=== PATIENT | male | born 1985 | race Caucasian/White ===

== ENCOUNTER 2019-04-20 08:37 | Observation (INO) ==
[2019-04-20] MEDS ORDERED: 0.9 % Sodium Chloride 1,000 ML IVC ONE ×2 (08:57→10:59)
[2019-04-20] MEDS ORDERED: Ondansetron 4 MG/2 ML VIAL IVP ONE ×2 (08:57→13:23)
[2019-04-20 09:25] LABS: Basophils % 0.3 %; Eosinophils # 0.1 K/mcL (0.0-0.6); Eosinophils % 0.6 %; Hematocrit 43.3 % (37.5-50.1); Hemoglobin 14.9 g/dL (12.9-16.9); Immature Granulocytes % 0.4 % (0-4); Lymphocytes # 2.2 K/mcL (0.6-4.6); Lymphocytes % 21.6 %; Mean Corpuscular HGB Conc 34.4 g/dL (31.6-35.5); Mean Corpuscular Hemoglobin 31.5 pg (28.0-33.3); Mean Corpuscular Volume 91.5 fL (83.0-100.0); Mean Platelet Volume 10.4 fL (9.4-12.4); Monocytes # 0.6 K/mcL (0.0-1.3); Neutrophils # 7.2 K/mcL (1.6-8.9); Platelet Count 207 K/mcL (140-400); Red Blood Count 4.73 M/mcL (4.19-5.50); Red Cell Distribution Width 12.5 % (11.5-14.5); Segmented Neutrophils % 71.1 %; White Blood Count 10.1 K/mcL (4.3-11.1)
--- NOTE | 2019-04-20 09:28 | Emergency Department Note ---
Disposition Clinical Impression: Colitis, Intractable abdominal pain Intractable nausea and vomiting Qualifiers: Vomiting type: unspecified Qualified Code(s): R11.2 - Nausea with vomiting, unspecified Disposition: Admitted As Inpatient Condition: Good Referrals: NONE,PCP [Primary Care Provider] - Forms: ED Satisfaction Letter, Work/School Release Time of Disposition: 13:43 Abdominal Pain HPI - General Chief Complaint: ED Abdominal Pain Stated Complaint: abdominal pain Time Seen by Provider: 04/20/19 08:39 Source: patient, EMS Mode of arrival: ambulatory Limitations: no limitations Nursing Notes Reviewed: Yes Vital Signs Reviewed: Yes - History of Present Illness HPI Narrative: Alert and oriented nontoxic-appearing 34-year-old male with a history of diverticular disease presents for evaluation for concerns of a flare of diverticulitis. He complains of 8-9 days worth of progressively worsening diffuse lower abdominal/left lower quadrant pain. He complains of nausea and several episodes of vomiting. He states he is unable to keep food or beverage down. He states that he had not had a bowel movement for several days up until yesterday evening. He states that he had a large bowel movement which consisted of flecks of bright red blood. He describes some blood-streaked emesis as well earlier this morning. He denies any fever or chills. He denies any urinary symptoms. He states that he had been referred to gastroenterology however he was lost to follow-up. Pt Subjective Complaint: abdominal pain Onset (ago): day(s) Consistency: Worsening Location: diffuse, LLQ Pain Severity: severe Pain Scale: 10 Quality: aching Radiation: none Migration to: no migration Improves with: nothing Worsens with: eating Associated symptoms: Reports: nausea, vomiting. Denies: diarrhea, fever, chills, constipation, dysuria Treatments prior to arrival: none - Related Data Home Medications Medication Instructions Recorded Confirmed No Known Home Drugs 04/20/19 04/20/19 Allergies Allergy/AdvReac Type Severity Reaction Status Date / Time No Known Allergies Allergy Verified 09/20/17 19:35 All systems ED: reviewed and negative except as stated. Review of Systems: As Per HPI Constitutional: Denies: fever, chills, weakness, weight change Eyes: Denies: eye pain, eye discharge, vision change ENT ED: Denies: ear pain, throat pain, dental pain, hearing loss, epistaxis, congestion, dysphagia Cardiovascular: Denies: chest pain, palpitations, dyspnea on exertion, edema, syncope Respiratory: Denies: cough, dyspnea, wheezes, hemoptysis, stridor Gastrointestinal: Reports: as per HPI, abdominal pain, nausea, vomiting. Denies: diarrhea, constipation, hematemesis, melena, hematochezia Genitourinary: Denies: urgency, dysuria, frequency, hematuria Musculoskeletal: Denies: back pain, neck pain, arthralgia, myalgia Integumentary: Denies: rash, abrasion, lesions Neurological: Denies: headache, weakness, numbness, paresthesias, confusion, abnormal gait, vertigo Psychiatric: Denies: anxiety, depression, suicidal thoughts, homicidal thoughts, auditory hallucinations, visual hallucinations Endocrine: Denies: fatigue Hematological/Lymphatic: Denies: easy bleeding, easy bruising Allergic/Immunologic: Denies: facial swelling, urticaria Abdominal Pain PMH - Past Medical History Medical history: Reports: GERD Male Surgical History: Reports: orthopedic, other, other Psychiatric history: Reports: anxiety, bipolar, depression - Social History Smoking status: Current every day smoker Alcohol use: Reports: occasionally Drug use: Reports: marijuana Physical Exam - General General appearance: alert - Head Head exam: atraumatic, normocephalic, normal inspection - Eye Eye exam: Present: normal appearance, PERRL, EOMI. Absent: conjunctival injection - ENT ENT exam: mucous membranes moist - Neck Neck exam: Present: normal inspection, full ROM - Chest Chest inspection: Present: normal inspection, symmetric chest wall rise - Respiratory Respiratory exam: Present: normal lung sounds bilaterally. Absent: respiratory distress, wheezes, stridor, accessory muscle use, prolonged expiratory phase - Cardiovascular Cardiovascular exam: Present: regular rate, normal rhythm, normal heart sounds - Abdominal Exam Abdominal exam: Present: soft, tenderness, normal bowel sounds. Absent: distention, guarding, rebound, rigidity, mass Abdominal tenderness: Present: LLQ, diffuse, moderate - Extremities Exam Extremities exam: Present: normal inspection, full ROM - Neurological Exam Neurological exam: Present: alert, oriented X3, normal gait - Skin Skin exam: Present: warm, dry, intact, normal color. Absent: rash Course Course Narrative: 1110: I spoke with Von Matthews, advanced practice provider with gastroenterology. He recommends the patient be discharged home to follow-up within the next week for colonoscopy. He recommends Cipro and Flagyl for a 10 day course. 1120: I spoke with Dr. Mendez regarding this patient's case. He has had a [id number] evaluation with the patient. The patient states that pain and nausea are only slightly improved. He states he is not comfortable being discharged home at this point. I contacted gastroenterology again. They are agreeable to consultation with this patient in house. The patient will be admitted to medicine. Additional IV fluid, analgesia and antiemetics have been ordered. 1340: I spoke with Dr. Snyder of the Hospital services agreed to accept the patient for admission to the hospitalist care. Vital Signs Temperature 98.4 F 04/20/19 08:42 Pulse Rate 79 04/20/19 08:42 Respiratory Rate 18 04/20/19 08:42 Blood Pressure 114/89 04/20/19 08:42 O2 Sat by Pulse Oximetry 97 04/20/19 08:42 Temperature 98.4 F 04/20/19 08:42 Pulse Rate 59 04/20/19 10:51 Respiratory Rate 18 04/20/19 10:51 Blood Pressure 108/76 04/20/19 10:51 O2 Sat by Pulse Oximetry 100 04/20/19 10:51 Oxygen Delivery Oxygen Delivery Room Air Abdominal Pain - Medical Records Medical records reviewed: Yes I reviewed the patient's medical records. - Lab Data Lab results reviewed: Yes I reviewed the patient's lab results. Lab results narrative: Lab Results 04/20/19 04/20/19 04/20/19 Range/Units 09:13 09:13 09:13 WBC 10.1 (4.3-11.1) K/mcL RBC 4.73 (4.19-5.50) M/mcL Hgb 14.9 (12.9-16.9) g/dL Hct 43.3 (37.5-50.1) % MCV 91.5 (83.0-100.0) fL MCH 31.5 (28.0-33.3) pg MCHC 34.4 (31.6-35.5) g/dL RDW 12.5 (11.5-14.5) % Plt Count 207 (140-400) K/mcL MPV 10.4 (9.4-12.4) fL Immature Gran % 0.4 (0-4) % Seg Neutrophils % 71.1 % Lymphocytes % 21.6 % Monocytes % 6.0 % Eosinophils % 0.6 % Basophils % 0.3 % Neutrophils # 7.2 (1.6-8.9) K/mcL Lymphocytes # 2.2 (0.6-4.6) K/mcL Monocytes # 0.6 (0.0-1.3) K/mcL Eosinophils # 0.1 (0.0-0.6) K/mcL Basophils # 0.0 (0.0-0.2) K/mcL Sodium 138 (136-145) mEq/L Potassium 3.3 L (3.5-5.1) mEq/L Chloride 99 (98-107) mEq/L Carbon Dioxide 30 H (23-29) mEq/L BUN 31 H (6-20) mg/dL Creatinine 0.87 (0.70-1.30) mg/dL Est GFR ( Amer) > 60 (> 60) Est GFR (Non-Af Amer) > 60 (> 60) BUN/Creatinine Ratio 36 H (6-26) Glucose 172 H (70-105) mg/dL Calculated Osmolality 297 (280-300) Lactic Acid 2.0 (0.5-2.2) mmol/L Calcium 9.8 (8.6-10.3) mg/dL Total Bilirubin 0.9 (0.3-1.0) mg/dL Direct Bilirubin 0.2 (0.0-0.2) mg/dL Indirect Bilirubin 0.7 (0.0-1.2) mg/dL AST 13 (13-39) Units/L ALT 15 (7-52) Units/L Alkaline Phosphatase 72 (34-104) Units/L Serum Total Protein 7.3 (6.4-8.9) g/dL Albumin 4.7 (3.5-5.7) g/dL Globulin 2.6 (2.4-3.5) g/dL Albumin/Globulin Ratio 1.8 (1.1-2.2) Amylase 48 (29-103) Units/L Lipase 18 (11-82) Units/L Ur Specimen Adequacy Urine Color (Yellow) Urine Clarity (Clear) Urine pH (5.0-8.0) pH Units Ur Specific [place] (1.010-1.025) Urine Protein (Neg-Trace) mg/dL Urine Glucose (UA) (Normal) mg/dL Urine Ketones (Negative) mg/dL Urine Blood (Negative) Urine Nitrite (Negative) Urine Bilirubin (Negative) Urine Urobilinogen (Normal) mg/dL Ur Leukocyte Esterase (Negative) Ur Culture Indicated? (NO) Urine Opiates Screen (Btzrzk=048) ng/mL Ur Barbiturates Screen (Kjqnvv=645) ng/mL Ur Phencyclidine Scrn (Cutoff=25) ng/mL Ur Amphetamines Screen (Gyyxcu=3644) ng/mL U Benzodiazepines Scrn (Akjnte=437) ng/mL Urine Cocaine Screen (Cutoff= 300) ng/mL U Marijuana (THC) Screen (Cutoff = 50) ng/mL Ur Drug Screen Interp 04/20/19 04/20/19 Range/Units 09:29 09:29 WBC (4.3-11.1) K/mcL RBC (4.19-5.50) M/mcL Hgb (12.9-16.9) g/dL Hct (37.5-50.1) % MCV (83.0-100.0) fL MCH (28.0-33.3) pg MCHC (31.6-35.5) g/dL RDW (11.5-14.5) % Plt Count (140-400) K/mcL MPV (9.4-12.4) fL Immature Gran % (0-4) % Seg Neutrophils % % Lymphocytes % % Monocytes % % Eosinophils % % Basophils % % Neutrophils # (1.6-8.9) K/mcL Lymphocytes # (0.6-4.6) K/mcL Monocytes # (0.0-1.3) K/mcL Eosinophils # (0.0-0.6) K/mcL Basophils # (0.0-0.2) K/mcL Sodium (136-145) mEq/L Potassium (3.5-5.1) mEq/L Chloride (98-107) mEq/L Carbon Dioxide (23-29) mEq/L BUN (6-20) mg/dL Creatinine (0.70-1.30) mg/dL Est GFR ( Amer) (> 60) Est GFR (Non-Af Amer) (> 60) BUN/Creatinine Ratio (6-26) Glucose (70-105) mg/dL Calculated Osmolality (280-300) Lactic Acid (0.5-2.2) mmol/L Calcium (8.6-10.3) mg/dL Total Bilirubin (0.3-1.0) mg/dL Direct Bilirubin (0.0-0.2) mg/dL Indirect Bilirubin (0.0-1.2) mg/dL AST (13-39) Units/L ALT (7-52) Units/L Alkaline Phosphatase (34-104) Units/L Serum Total Protein (6.4-8.9) g/dL Albumin (3.5-5.7) g/dL Globulin (2.4-3.5) g/dL Albumin/Globulin Ratio (1.1-2.2) Amylase (29-103) Units/L Lipase (11-82) Units/L Ur Specimen Adequacy See below A Urine Color Dark Yellow (Yellow) Urine Clarity Slightly Cloudy A (Clear) Urine pH 6.0 (5.0-8.0) pH Units Ur Specific [place] >= 1.030 H (1.010-1.025) Urine Protein >=300 H (Neg-Trace) mg/dL Urine Glucose (UA) Normal (Normal) mg/dL Urine Ketones 15 H (Negative) mg/dL Urine Blood Negative (Negative) Urine Nitrite Negative (Negative) Urine Bilirubin Moderate H (Negative) Urine Urobilinogen Normal (Normal) mg/dL Ur Leukocyte Esterase Negative (Negative) Ur Culture Indicated? NO (NO) Urine Opiates Screen Positive H (Pwrdsc=244) ng/mL Ur Barbiturates Screen Negative (Lyuerh=070) ng/mL Ur Phencyclidine Scrn Negative (Cutoff=25) ng/mL Ur Amphetamines Screen Negative (Yoxkfl=1319) ng/mL U Benzodiazepines Scrn Negative (Gyucse=599) ng/mL Urine Cocaine Screen Negative (Cutoff= 300) ng/mL U Marijuana (THC) Screen Positive H (Cutoff = 50) ng/mL Ur Drug Screen Interp See Below Result diagrams: 04/20/19 09:13 04/20/19 09:13 Lab Results 04/20/19 04/20/19 04/20/19 Range/Units 09:13 09:13 09:13 WBC 10.1 (4.3-11.1) K/mcL RBC 4.73 (4.19-5.50) M/mcL Hgb 14.9 (12.9-16.9) g/dL Hct 43.3 (37.5-50.1) % MCV 91.5 (83.0-100.0) fL MCH 31.5 (28.0-33.3) pg MCHC 34.4 (31.6-35.5) g/dL RDW 12.5 (11.5-14.5) % Plt Count 207 (140-400) K/mcL MPV 10.4 (9.4-12.4) fL Immature Gran % 0.4 (0-4) % Seg Neutrophils % 71.1 % Lymphocytes % 21.6 % Monocytes % 6.0 % Eosinophils % 0.6 % Basophils % 0.3 % Neutrophils # 7.2 (1.6-8.9) K/mcL Lymphocytes # 2.2 (0.6-4.6) K/mcL Monocytes # 0.6 (0.0-1.3) K/mcL Eosinophils # 0.1 (0.0-0.6) K/mcL Basophils # 0.0 (0.0-0.2) K/mcL Sodium 138 (136-145) mEq/L Potassium 3.3 L (3.5-5.1) mEq/L Chloride 99 (98-107) mEq/L Carbon Dioxide 30 H (23-29) mEq/L BUN 31 H (6-20) mg/dL Creatinine 0.87 (0.70-1.30) mg/dL Est GFR ( Amer) > 60 (> 60) Est GFR (Non-Af Amer) > 60 (> 60) BUN/Creatinine Ratio 36 H (6-26) Glucose 172 H (70-105) mg/dL Calculated Osmolality 297 (280-300) Lactic Acid 2.0 (0.5-2.2) mmol/L Calcium 9.8 (8.6-10.3) mg/dL Total Bilirubin 0.9 (0.3-1.0) mg/dL Direct Bilirubin 0.2 (0.0-0.2) mg/dL Indirect Bilirubin 0.7 (0.0-1.2) mg/dL AST 13 (13-39) Units/L ALT 15 (7-52) Units/L Alkaline Phosphatase 72 (34-104) Units/L Serum Total Protein 7.3 (6.4-8.9) g/dL Albumin 4.7 (3.5-5.7) g/dL Globulin 2.6 (2.4-3.5) g/dL Albumin/Globulin Ratio 1.8 (1.1-2.2) Amylase 48 (29-103) Units/L Lipase 18 (11-82) Units/L Ur Specimen Adequacy Urine Color (Yellow) Urine Clarity (Clear) Urine pH (5.0-8.0) pH Units Ur Specific [place] (1.010-1.025) Urine Protein (Neg-Trace) mg/dL Urine Glucose (UA) (Normal) mg/dL Urine Ketones (Negative) mg/dL Urine Blood (Negative) Urine Nitrite (Negative) Urine Bilirubin (Negative) Urine Urobilinogen (Normal) mg/dL Ur Leukocyte Esterase (Negative) Ur Culture Indicated? (NO) Urine Opiates Screen (Wuvams=098) ng/mL Ur Barbiturates Screen (Gozqay=569) ng/mL Ur Phencyclidine Scrn (Cutoff=25) ng/mL Ur Amphetamines Screen (Odeees=2819) ng/mL U Benzodiazepines Scrn (Djyazq=347) ng/mL Urine Cocaine Screen (Cutoff= 300) ng/mL U Marijuana (THC) Screen (Cutoff = 50) ng/mL Ur Drug Screen Interp 04/20/19 04/20/19 Range/Units 09:29 09:29 WBC (4.3-11.1) K/mcL RBC (4.19-5.50) M/mcL Hgb (12.9-16.9) g/dL Hct (37.5-50.1) % MCV (83.0-100.0) fL MCH (28.0-33.3) pg MCHC (31.6-35.5) g/dL RDW (11.5-14.5) % Plt Count (140-400) K/mcL MPV (9.4-12.4) fL Immature Gran % (0-4) % Seg Neutrophils % % Lymphocytes % % Monocytes % % Eosinophils % % Basophils % % Neutrophils # (1.6-8.9) K/mcL Lymphocytes # (0.6-4.6) K/mcL Monocytes # (0.0-1.3) K/mcL Eosinophils # (0.0-0.6) K/mcL Basophils # (0.0-0.2) K/mcL Sodium (136-145) mEq/L Potassium (3.5-5.1) mEq/L Chloride (98-107) mEq/L Carbon Dioxide (23-29) mEq/L BUN (6-20) mg/dL Creatinine (0.70-1.30) mg/dL Est GFR ( Amer) (> 60) Est GFR (Non-Af Amer) (> 60) BUN/Creatinine Ratio (6-26) Glucose (70-105) mg/dL Calculated Osmolality (280-300) Lactic Acid (0.5-2.2) mmol/L Calcium (8.6-10.3) mg/dL Total Bilirubin (0.3-1.0) mg/dL Direct Bilirubin (0.0-0.2) mg/dL Indirect Bilirubin (0.0-1.2) mg/dL AST (13-39) Units/L ALT (7-52) Units/L Alkaline Phosphatase (34-104) Units/L Serum Total Protein (6.4-8.9) g/dL Albumin (3.5-5.7) g/dL Globulin (2.4-3.5) g/dL Albumin/Globulin Ratio (1.1-2.2) Amylase (29-103) Units/L Lipase (11-82) Units/L Ur Specimen Adequacy See below A Urine Color Dark Yellow (Yellow) Urine Clarity Slightly Cloudy A (Clear) Urine pH 6.0 (5.0-8.0) pH Units Ur Specific [place] >= 1.030 H (1.010-1.025) Urine Protein >=300 H (Neg-Trace) mg/dL Urine Glucose (UA) Normal (Normal) mg/dL Urine Ketones 15 H (Negative) mg/dL Urine Blood Negative (Negative) Urine Nitrite Negative (Negative) Urine Bilirubin Moderate H (Negative) Urine Urobilinogen Normal (Normal) mg/dL Ur Leukocyte Esterase Negative (Negative) Ur Culture Indicated? NO (NO) Urine Opiates Screen Positive H (Kwaujy=131) ng/mL Ur Barbiturates Screen Negative (Vmqvaf=818) ng/mL Ur Phencyclidine Scrn Negative (Cutoff=25) ng/mL Ur Amphetamines Screen Negative (Yfvczq=0623) ng/mL U Benzodiazepines Scrn Negative (Kzoigk=950) ng/mL Urine Cocaine Screen Negative (Cutoff= 300) ng/mL U Marijuana (THC) Screen Positive H (Cutoff = 50) ng/mL Ur Drug Screen Interp See Below - Radiology Data Radiology results reviewed: Yes I reviewed the patient's radiology results. Abdomen/Pelvis CT 04/20/19 09:45 IMPRESSION: Mild circumferential wall thickening involving portions of the colon which may again relate to infectious or inflammatory colitis. No evidence of diverticulitis. D/ / Salvador Ring / Salvador Ring Interpreting Provider: Salvador Ring
[2019-04-20] MEDS ORDERED: *HR* FentaNYL (PF) 100 MCG/2 ML VIAL IVP ONE ×2 (09:30→11:08)
[2019-04-20 09:43] LABS: Alanine Aminotransferase 15 Units/L (7-52); Albumin 4.7 g/dL (3.5-5.7); Albumin/Globulin Ratio 1.8 (1.1-2.2); Alkaline Phosphatase 72 Units/L (34-104); Amylase 48 Units/L (29-103); Aspartate Amino Transferase 13 Units/L (13-39); BUN/Creatinine Ratio 36 (6-26); Bilirubin,Direct 0.2 mg/dL (0.0-0.2); Bilirubin,Indirect 0.7 mg/dL (0.0-1.2); Bilirubin,Total 0.9 mg/dL (0.3-1.0); Blood Urea Nitrogen 31 mg/dL (6-20); Calcium 9.8 mg/dL (8.6-10.3); Carbon Dioxide 30 mEq/L (23-29); Chloride 99 mEq/L (98-107); Globulin 2.6 g/dL (2.4-3.5); Glucose 172 mg/dL (70-105); Lipase 18 Units/L (11-82); Osmolality,Calculated 297 (280-300); Potassium 3.3 mEq/L (3.5-5.1); Sodium 138 mEq/L (136-145); Total Protein 7.3 g/dL (6.4-8.9); eGFR For African Americans > 60 (> 60); eGFR For Non-African Americans > 60 (> 60)
[2019-04-20] MEDS ORDERED: Isovue-370 500 ML BOTTLE IVP ONE (09:45)
[2019-04-20 09:49] LABS: Bilirubin,Urine Moderate (Negative); Blood,Urine Negative (Negative); Clarity,Urine Slightly Cloudy (Clear); Color,Urine Dark Yellow (Yellow); Glucose,Urine (UA) Normal (Normal); Ketones,Urine 15 mg/dL (Negative); Leukocyte Esterase,Urine Negative (Negative); Nitrite,Urine Negative (Negative); Protein,Urine >=300 mg/dL (Neg-Trace); Specific Gravity,Urine >= 1.030 (1.010-1.025); Urobilinogen,Urine Normal (Normal)
[2019-04-20 10:07] LABS: Amphetamine Screen,Urine Negative ng/mL (Cutoff=1000); Barbiturate Screen,Urine Negative ng/mL (Cutoff=200); Benzodiazepines Screen,Urine Negative ng/mL (Cutoff=200); Cannabinoid Screen,Urine Positive ng/mL (Cutoff = 50); Cocaine Screen,Urine Negative ng/mL (Cutoff= 300); Opiate Screen,Urine Positive ng/mL (Cutoff=300); Phencyclidine Screen,Urine Negative ng/mL (Cutoff=25)
[2019-04-20] MEDS ORDERED: *HR* Promethazine 25 MG/ML VIAL IVP ONE (11:08)
[2019-04-20] MEDS ORDERED: MetroNIDAZOLE 500 MG/100 ML 500 MG/100 ML BAG IVPB ONE (11:22)
--- NOTE | 2019-04-20 11:24 | Emergency Department Note ---
Disposition Clinical Impression: Colitis, Intractable abdominal pain Intractable nausea and vomiting Qualifiers: Vomiting type: unspecified Qualified Code(s): R11.2 - Nausea with vomiting, unspecified Disposition: Admitted As Inpatient Condition: Good Time of Disposition: 16:52 General Adult HPI - General Chief complaint: ED Abdominal Pain Stated complaint: abdominal pain Time Seen by Provider: 04/20/19 08:39 Source: patient, EMS Mode of arrival: ambulatory Limitations: no limitations Nursing Notes Reviewed: Yes Vital Signs Reviewed: Yes - History of Present Illness Pain Scale: 10 - Related Data Home Medications Medication Instructions Recorded Confirmed No Known Home Drugs 04/20/19 04/20/19 Allergies Allergy/AdvReac Type Severity Reaction Status Date / Time No Known Allergies Allergy Verified 09/20/17 19:35 Constitutional: Denies: fever, chills, weakness, weight change Eyes: Denies: eye pain, eye discharge, vision change ENT ED: Denies: ear pain, throat pain, dental pain, hearing loss, epistaxis, congestion, dysphagia Cardiovascular: Denies: chest pain, palpitations, dyspnea on exertion, edema, syncope Respiratory: Denies: cough, dyspnea, wheezes, hemoptysis, stridor Gastrointestinal: Reports: as per HPI, abdominal pain, nausea, vomiting. Denies: diarrhea, constipation, hematemesis, melena, hematochezia Genitourinary: Denies: urgency, dysuria, frequency, hematuria Musculoskeletal: Denies: back pain, neck pain, arthralgia, myalgia Integumentary: Denies: rash, abrasion, lesions Neurological: Denies: headache, weakness, numbness, paresthesias, confusion, abnormal gait, vertigo Psychiatric: Denies: anxiety, depression, suicidal thoughts, homicidal thoughts, auditory hallucinations, visual hallucinations Endocrine: Denies: fatigue Hematological/Lymphatic: Denies: easy bleeding, easy bruising Allergic/Immunologic: Denies: facial swelling, urticaria Past Medical History - Past Medical History Medical history: Reports: GERD Psychiatric history: Reports: anxiety, bipolar, depression - Social History Smoking Status: Current every day smoker Smokeless Tobacco Status: No Alcohol use: Reports: occasionally Drug use: Reports: marijuana Physical Exam - General Limitations: no limitations General appearance: alert Course Vital Signs Temperature 98.4 F 04/20/19 08:42 Pulse Rate 79 04/20/19 08:42 Respiratory Rate 18 04/20/19 08:42 Blood Pressure 114/89 04/20/19 08:42 O2 Sat by Pulse Oximetry 97 04/20/19 08:42 Temperature 97.6 F 04/20/19 15:16 Pulse Rate 64 04/20/19 15:16 Respiratory Rate 16 04/20/19 15:16 Blood Pressure 114/65 04/20/19 15:16 O2 Sat by Pulse Oximetry 97 04/20/19 15:16 Oxygen Delivery Oxygen Delivery Room Air Medical Decision Making - MDM Narrative Medical decision making narrative: Abdomen/Pelvis CT 04/20/19 09:45 IMPRESSION: Mild circumferential wall thickening involving portions of the colon which may again relate to infectious or inflammatory colitis. No evidence of diverticulitis. D/ / Salvador Ring / Salvador Ring Interpreting Provider: Salvador Ring - Lab Data Result diagrams: 04/20/19 09:13 04/20/19 09:13 Lab Results 04/20/19 04/20/19 04/20/19 Range/Units 09:13 09:13 09:13 WBC 10.1 (4.3-11.1) K/mcL RBC 4.73 (4.19-5.50) M/mcL Hgb 14.9 (12.9-16.9) g/dL Hct 43.3 (37.5-50.1) % MCV 91.5 (83.0-100.0) fL MCH 31.5 (28.0-33.3) pg MCHC 34.4 (31.6-35.5) g/dL RDW 12.5 (11.5-14.5) % Plt Count 207 (140-400) K/mcL MPV 10.4 (9.4-12.4) fL Immature Gran % 0.4 (0-4) % Seg Neutrophils % 71.1 % Lymphocytes % 21.6 % Monocytes % 6.0 % Eosinophils % 0.6 % Basophils % 0.3 % Neutrophils # 7.2 (1.6-8.9) K/mcL Lymphocytes # 2.2 (0.6-4.6) K/mcL Monocytes # 0.6 (0.0-1.3) K/mcL Eosinophils # 0.1 (0.0-0.6) K/mcL Basophils # 0.0 (0.0-0.2) K/mcL Sodium 138 (136-145) mEq/L Potassium 3.3 L (3.5-5.1) mEq/L Chloride 99 (98-107) mEq/L Carbon Dioxide 30 H (23-29) mEq/L BUN 31 H (6-20) mg/dL Creatinine 0.87 (0.70-1.30) mg/dL Est GFR ( Amer) > 60 (> 60) Est GFR (Non-Af Amer) > 60 (> 60) BUN/Creatinine Ratio 36 H (6-26) Glucose 172 H (70-105) mg/dL Calculated Osmolality 297 (280-300) Lactic Acid 2.0 (0.5-2.2) mmol/L Calcium 9.8 (8.6-10.3) mg/dL Total Bilirubin 0.9 (0.3-1.0) mg/dL Direct Bilirubin 0.2 (0.0-0.2) mg/dL Indirect Bilirubin 0.7 (0.0-1.2) mg/dL AST 13 (13-39) Units/L ALT 15 (7-52) Units/L Alkaline Phosphatase 72 (34-104) Units/L Serum Total Protein 7.3 (6.4-8.9) g/dL Albumin 4.7 (3.5-5.7) g/dL Globulin 2.6 (2.4-3.5) g/dL Albumin/Globulin Ratio 1.8 (1.1-2.2) Amylase 48 (29-103) Units/L Lipase 18 (11-82) Units/L Ur Specimen Adequacy Urine Color (Yellow) Urine Clarity (Clear) Urine pH (5.0-8.0) pH Units Ur Specific [place] (1.010-1.025) Urine Protein (Neg-Trace) mg/dL Urine Glucose (UA) (Normal) mg/dL Urine Ketones (Negative) mg/dL Urine Blood (Negative) Urine Nitrite (Negative) Urine Bilirubin (Negative) Urine Urobilinogen (Normal) mg/dL Ur Leukocyte Esterase (Negative) Ur Culture Indicated? (NO) Urine Opiates Screen (Pplpmo=915) ng/mL Ur Barbiturates Screen (Odluzb=252) ng/mL Ur Phencyclidine Scrn (Cutoff=25) ng/mL Ur Amphetamines Screen (Hcyeqo=9147) ng/mL U Benzodiazepines Scrn (Sopiay=791) ng/mL Urine Cocaine Screen (Cutoff= 300) ng/mL U Marijuana (THC) Screen (Cutoff = 50) ng/mL Ur Drug Screen Interp 04/20/19 04/20/19 Range/Units 09:29 09:29 WBC (4.3-11.1) K/mcL RBC (4.19-5.50) M/mcL Hgb (12.9-16.9) g/dL Hct (37.5-50.1) % MCV (83.0-100.0) fL MCH (28.0-33.3) pg MCHC (31.6-35.5) g/dL RDW (11.5-14.5) % Plt Count (140-400) K/mcL MPV (9.4-12.4) fL Immature Gran % (0-4) % Seg Neutrophils % % Lymphocytes % % Monocytes % % Eosinophils % % Basophils % % Neutrophils # (1.6-8.9) K/mcL Lymphocytes # (0.6-4.6) K/mcL Monocytes # (0.0-1.3) K/mcL Eosinophils # (0.0-0.6) K/mcL Basophils # (0.0-0.2) K/mcL Sodium (136-145) mEq/L Potassium (3.5-5.1) mEq/L Chloride (98-107) mEq/L Carbon Dioxide (23-29) mEq/L BUN (6-20) mg/dL Creatinine (0.70-1.30) mg/dL Est GFR ( Amer) (> 60) Est GFR (Non-Af Amer) (> 60) BUN/Creatinine Ratio (6-26) Glucose (70-105) mg/dL Calculated Osmolality (280-300) Lactic Acid (0.5-2.2) mmol/L Calcium (8.6-10.3) mg/dL Total Bilirubin (0.3-1.0) mg/dL Direct Bilirubin (0.0-0.2) mg/dL Indirect Bilirubin (0.0-1.2) mg/dL AST (13-39) Units/L ALT (7-52) Units/L Alkaline Phosphatase (34-104) Units/L Serum Total Protein (6.4-8.9) g/dL Albumin (3.5-5.7) g/dL Globulin (2.4-3.5) g/dL Albumin/Globulin Ratio (1.1-2.2) Amylase (29-103) Units/L Lipase (11-82) Units/L Ur Specimen Adequacy See below A Urine Color Dark Yellow (Yellow) Urine Clarity Slightly Cloudy A (Clear) Urine pH 6.0 (5.0-8.0) pH Units Ur Specific [place] >= 1.030 H (1.010-1.025) Urine Protein >=300 H (Neg-Trace) mg/dL Urine Glucose (UA) Normal (Normal) mg/dL Urine Ketones 15 H (Negative) mg/dL Urine Blood Negative (Negative) Urine Nitrite Negative (Negative) Urine Bilirubin Moderate H (Negative) Urine Urobilinogen Normal (Normal) mg/dL Ur Leukocyte Esterase Negative (Negative) Ur Culture Indicated? NO (NO) Urine Opiates Screen Positive H (Xxqvgk=593) ng/mL Ur Barbiturates Screen Negative (Cxfoom=863) ng/mL Ur Phencyclidine Scrn Negative (Cutoff=25) ng/mL Ur Amphetamines Screen Negative (Ohgtgm=9499) ng/mL U Benzodiazepines Scrn Negative (Mzossq=275) ng/mL Urine Cocaine Screen Negative (Cutoff= 300) ng/mL U Marijuana (THC) Screen Positive H (Cutoff = 50) ng/mL Ur Drug Screen Interp See Below Attestation Statement - Attestation Attestation: This documentation is done with the assistance of Dragon dictation. Despite efforts made to ensure accuracy, there may be inaccuracies in intertype operator or spelling and typographical errors. I have personally performed a face to face evaluation on this patient. I have reviewed and agree with the care plan. History and Exam by me shows: Patient seen and evaluated by cardiology human myself, agree with his evaluation management plan, I supervised the care of the patient's stay. Patient's been getting abdominal pain on and off constipation and then a lot of nausea and vomiting. Denies any diarrhea. He had followed up with GI was not happy with what they did This he said he wanted colonoscopy and they can do it. He states that he is worried that he could have colitis he said colitis killed his uncle. He thinks that might of been Crohn's please uncertain. Patient's nerve been d iagnosed with Crohn's. His abdomen is tender we did a CT which shows colitis. He is still having pain despite fluids and meds. Were in a give him another dose of pain medicine nausea medicine and fluids and then talk about admission. He is in agreement this plan. We will also speak with GI.
--- NOTE | 2019-04-20 14:29 | Internal Med History&Physical ---
<Ferny Dutta - Last Filed: 04/20/19 14:50> Date of Encounter: 04/20/19 Time of Encounter: 13:54 Internal Medicine - H&P: HPI Chief complaint: abdominal pain Admitted From: Emergency Dept Plans for Post Hospital Care: Home History of present illness: Mr. Vigil is a 34 year old male with PMHx of anxiety, depression, diverticulosis. Patient arrived to the ED today with chief complaint of abdominal paint that started about nine days ago. He states that his last bowel movement was about 6 days ago, when he reports having a large bowel movement that was dark/tarry. He states that for about 9 days, he has had severe nausea and vomiting every time he tried to eat or drink anything and has not been able to keep anything down. This has caused him to become extremely weak. He has had numerous episodes of vomiting per day to the point where he has lost count. patient also reports blood in his stool and blood in his vomit. he denies hematuria, chest pain, shortness of breath. Past Med Surg Social Fam HX - Past Medical History Medical history: GERD Additional medical history: diverticulitis Psychiatric history: anxiety, bipolar, depression - Past Surgical History Additional surgical history: ELBOW SURG - Social History Smoking Status: Current every day smoker Smokeless Tobacco Status: No Alcohol use: occasionally Drug use: marijuana Internal Medicine - H&P: Meds No Known Home Drugs 04/20/19 [History] Allergy/AdvReac Type Severity Reaction Status Date / Time No Known Allergies Allergy Verified 04/20/19 21:14 All Systems PM: A 10-system review of systems was performed and is negative for pertinent findings except as documented above in the HPI. - Constitutional Constitutional: as per HPI - EENT Eyes: as per HPI Ears: as per HPI Nose, mouth and throat: as per HPI - Breasts Breasts: as per HPI - Cardiovascular Cardiovascular ROS IM: as per HPI - Respiratory Respiratory: as per HPI - Gastrointestinal Gastrointestinal: as per HPI - Genitourinary Genitourinary ROS male: as per HPI - Musculoskeletal Musculoskeletal ROS IM: as per HPI - Integumentary Integumentary IM: as per HPI - Neurological Neurological ROS: as per HPI - Psychiatric Psychiatric: as per HPI - Endocrine Endocrine IM: as per HPI - Hematologic/Lymphatic Hematologic/Lymphatic: as per HPI - Allergic/Immunologic Allergic/Immunologic: as per HPI - Constitutional Vitals: Temp Pulse Resp BP Pulse Ox 98.4 F 59 18 108/76 100 04/20/19 08:42 04/20/19 10:51 04/20/19 10:51 04/20/19 10:51 04/20/19 10:51 General appearance: Present: A&O X 3, pleasant, no acute distress, answers questions appropriately Exam: alert and oriented x3 - Head Head exam: Present: atraumatic, normocephalic - Neck Neck exam general surgery: Present: supple, trachea midline - Respiratory Respiratory exam: Absent: rhonchi, wheezes - Cardiovascular Cardiovascular exam: Present: RRR, +S1, +S2 - GI/Abdominal GI/Abdominal exam: Absent: distended Additional comments: soft, significant tenderness to minimal palpation with guarding. tenderness to palpation in all abdominal quadrants. - Extremities Exam Extremities exam: Absent: cyanotic, pedal edema - Neurological Exam Neurological exam: Present: alert, oriented X3, no focal deficits - Psychiatric Psychiatric exam: Present: normal affect, normal mood - Skin Skin exam: Present: dry, intact Internal Med - H&P Results - Labs CBC & Chem 7: 04/20/19 09:13 04/20/19 09:13 Labs: Short CBC 04/20/19 Range/Units 09:13 WBC 10.1 (4.3-11.1) K/mcL Hgb 14.9 (12.9-16.9) g/dL Hct 43.3 (37.5-50.1) % Plt Count 207 (140-400) K/mcL Neutrophils # 7.2 (1.6-8.9) K/mcL BMP 04/20/19 09:13 Sodium 138 Potassium 3.3 L Chloride 99 Carbon Dioxide 30 H BUN 31 H Creatinine 0.87 Glucose 172 H Calcium 9.8 Liver Function 04/20/19 Range/Units 09:13 Total Bilirubin 0.9 (0.3-1.0) mg/dL Direct Bilirubin 0.2 (0.0-0.2) mg/dL AST 13 (13-39) Units/L ALT 15 (7-52) Units/L Alkaline Phosphatase 72 (34-104) Units/L Albumin 4.7 (3.5-5.7) g/dL Urine 04/20/19 Range/Units 09:29 Urine Color Dark Yellow (Yellow) Urine Clarity Slightly Cloudy A (Clear) Urine pH 6.0 (5.0-8.0) pH Units Ur Specific [place] >= 1.030 H (1.010-1.025) Urine Protein >=300 H (Neg-Trace) mg/dL Urine Glucose (UA) Normal (Normal) mg/dL - Impressions ITS Impressions Abdomen/Pelvis CT 04/20/19 09:45 IMPRESSION: Mild circumferential wall thickening involving portions of the colon which may again relate to infectious or inflammatory colitis. No evidence of diverticulitis. D/ / Salvador Ring / Salvador Ring Interpreting Provider: Salvador Ring - Assessment and Plan (1) Colitis Current Visit: Yes Status: Acute Assessment and plan: patient complains of 9 days of nausea, vomiting and has been unable to eat. Also complains of significant abdominal pain. CT abdomen shows mild circumferential wall thickening involving portions of the colon representing infectious or inflammatory colitis. Plan: IV fluids nausea control flagyl, cipro day 1 consult to GI for possible scope, as patient complais of bloody emesis and bloody bowel movements. NPO after midnight. (2) History of anxiety Current Visit: Yes Status: Chronic (3) History of depression Current Visit: Yes Status: Chronic (4) DVT prophylaxis Current Visit: Yes Status: Acute Assessment and plan: heparin SQ - Time Spent With Patient Total time spent is greater than 50% in coordination of care (as documented) at patient's floor/unit and/or counseling patient: less than 15 minutes <Whitney Snyder - Last Filed: 04/21/19 11:24> Date of Encounter: 04/20/19 Internal Medicine - H&P: HPI History of present illness: Mr. Vigil is a 34 year old male All Systems PM: A 10-system review of systems was performed and is negative for pertinent findings except as documented above in the HPI. - Constitutional Vitals: Temp Pulse Resp BP Pulse Ox 97.9 F 55 14 114/64 99 04/21/19 06:57 04/21/19 06:57 04/21/19 06:57 04/21/19 06:57 04/21/19 06:57 Internal Med - H&P Results - Labs CBC & Chem 7: 04/21/19 02:06 04/21/19 02:06 Labs: Short CBC 04/21/19 Range/Units 02:06 WBC 6.2 (4.3-11.1) K/mcL Hgb 10.6 L D (12.9-16.9) g/dL Hct 31.0 L (37.5-50.1) % Plt Count 146 (140-400) K/mcL Neutrophils # 1.9 (1.6-8.9) K/mcL BMP 04/21/19 02:06 Sodium 140 Potassium 3.5 Chloride 111 H Carbon Dioxide 25 BUN 22 H Creatinine 0.65 L Glucose 84 Calcium 8.2 L - Impressions ITS Impressions Abdomen/Pelvis CT 04/20/19 09:45 IMPRESSION: Mild circumferential wall thickening involving portions of the colon which may again relate to infectious or inflammatory colitis. No evidence of diverticulitis. D/ / Salvador Ring / Salvador Ring Interpreting Provider: Salvador Ring - Time Spent With Patient Total time spent is greater than 50% in coordination of care (as documented) at patient's floor/unit and/or counseling patient: - Attending Attestation I performed a history and physical examination of the patient and discussed his management with the resident. I reviewed the residents note and agree with the documented findings and plan of care.
[2019-04-20] MEDS ORDERED: Acetaminophen 325 MG TABLET PO PRN (14:30)
[2019-04-20] MEDS ORDERED: Naloxone 0.4 MG/ML INJ IVP PRN ×2 (14:30→16:19)
[2019-04-20] MEDS: 0.9 % Sodium Chloride 1,000 ML IVC SCH ×2 (15:31→23:42)
[2019-04-20] MEDS ORDERED: OXYCODONE Oral CONC 10 MG/0.5 ML ORAL.SYG SL ONE (16:02)
[2019-04-20] MEDS ORDERED: *HR* OxyCODONE Immed Rel 5 MG TABLET PO PRN (16:19)
[2019-04-20] MEDS: *HR* Heparin 5,000 UNIT/ML VIAL SQ SCH (17:54)
[2019-04-20] MEDS ORDERED: MetroNIDAZOLE 500 MG/100 ML 500 MG/100 ML BAG IVPB SCH (18:00)
[2019-04-20] MEDS: traMADol 50 MG TABLET PO PRN (21:57)
[2019-04-20] MEDS: MetroNIDAZOLE 500 MG/100 ML 500 MG/100 ML BAG IVPB SCH (23:44)
[2019-04-21 03:12] LABS: Basophils % 0.6 %; Eosinophils # 0.1 K/mcL (0.0-0.6); Eosinophils % 1.8 %; Immature Granulocytes % 0.2 % (0-4); Lymphocytes # 3.5 K/mcL (0.6-4.6); Lymphocytes % 56.4 %; Mean Corpuscular HGB Conc 34.2 g/dL (31.6-35.5); Mean Corpuscular Volume 93.7 fL (83.0-100.0); Monocytes # 0.6 K/mcL (0.0-1.3); Monocytes % 10.2 %; Neutrophils # 1.9 K/mcL (1.6-8.9); Platelet Count 146 K/mcL (140-400); Red Blood Count 3.31 M/mcL (4.19-5.50); Red Cell Distribution Width 12.7 % (11.5-14.5); Segmented Neutrophils % 30.8 %; White Blood Count 6.2 K/mcL (4.3-11.1)
[2019-04-21 03:14] LABS: Hemoglobin 10.6 g/dL (12.9-16.9)
[2019-04-21 03:32] LABS: BUN/Creatinine Ratio 34 (6-26); Blood Urea Nitrogen 22 mg/dL (6-20); Calcium 8.2 mg/dL (8.6-10.3); Carbon Dioxide 25 mEq/L (23-29); Chloride 111 mEq/L (98-107); Glucose 84 mg/dL (70-105); Magnesium 2.1 mg/dL (1.6-2.6); Osmolality,Calculated 293 (280-300); Phosphorous 3.1 mg/dL (2.7-4.5); Potassium 3.5 mEq/L (3.5-5.1); Sodium 140 mEq/L (136-145); eGFR For African Americans > 60 (> 60); eGFR For Non-African Americans > 60 (> 60)
[2019-04-21] MEDS: *HR* Heparin 5,000 UNIT/ML VIAL SQ SCH ×2 (05:03→16:08)
[2019-04-21] MEDS: MetroNIDAZOLE 500 MG/100 ML 500 MG/100 ML BAG IVPB SCH ×3 (05:32→22:12)
[2019-04-21] MEDS ORDERED: 0.9 % Sodium Chloride 1,000 ML IVC ONE (05:47)
[2019-04-21] MEDS ORDERED: Acetaminophen IV 500 MG/50 ML INFUS..BTL IVPB ONE (05:48)
[2019-04-21] MEDS: Ondansetron 4 MG/2 ML VIAL IVP PRN (06:35)
--- NOTE | 2019-04-21 14:09 | Internal Med Progress Note ---
Hospitalist Progress Note - Encounter Date of Encounter: 04/21/19 Time of Encounter: 10:15 - Subjective Interval History: Patient was seen and examined bedside. Patient stated his abdominal pain improved today. He denied any diarrhea .. No melena / BRBPR He still has some nausea.. No vomiting - Exam Vitals: Temp Pulse Resp BP Pulse Ox 97.9 F 55 14 114/68 99 04/21/19 06:57 04/21/19 06:57 04/21/19 06:57 04/21/19 13:20 04/21/19 06:57 Exam: Gen: Alert, awake, Oriented to time,place and person Chest: Diminished breath sounds B/L, No wheezing, No crackles, No rales Heart: S1S2+ RRR No murmurs Abd: Soft, mild discomfort lower abdomen region, BS +, No organomegaly Ext: No edema, pulses are palpable, No calf tenderness Neuro : No acute focal neuro deficits noticed Skin: No rash. - Assessment and Plan (1) Colitis Current Visit: Yes Status: Acute Assessment and Plan: Inf vs inflammatory Pt stated he was diagnosed with Ulceratgive colitis in the past 3-4 yrs ago in [place] unable to provide [facility] information where he had colonoscopy done cont empirical antibiotic IV Cipro on Flagyl continue symptomatic and supportive care G. I consulted. Appreciate recommendations (2) Intractable abdominal pain Current Visit: Yes Status: Acute (3) Intractable nausea and vomiting Current Visit: Yes Status: Acute Assessment and Plan: Improving continue symptomatic and supportive care - Time Spent with Patient Total time spent is greater than 50% in coordination of care (as documented) at patient's floor/unit and/or counseling patient: Internal Medicine: Result - Labs CBC & Chem 7: 04/21/19 02:06 04/21/19 02:06 Labs: Short CBC 04/21/19 Range/Units 02:06 WBC 6.2 (4.3-11.1) K/mcL Hgb 10.6 L D (12.9-16.9) g/dL Hct 31.0 L (37.5-50.1) % Plt Count 146 (140-400) K/mcL Neutrophils # 1.9 (1.6-8.9) K/mcL BMP 04/21/19 02:06 Sodium 140 Potassium 3.5 Chloride 111 H Carbon Dioxide 25 BUN 22 H Creatinine 0.65 L Glucose 84 Calcium 8.2 L Consult Discharge Plan - Plan Referrals: NONE,PCP [Primary Care Provider] - (3) Intractable nausea and vomiting Qualifiers: Vomiting type: unspecified Qualified Code(s): R11.2 - Nausea with vomiting, unspecified
--- NOTE | 2019-04-21 16:58 | Gastroenterology Consult Note ---
<Von Matthews - Last Filed: 04/21/19 16:55> Date of Encounter: 04/21/19 Time of Encounter: 10:40 - Assessment and plan (1) Colitis Current Visit: Yes Status: Acute Assessment and plan: CT A/P showed mild circumferential wall thickening involving portions of the colon which could be related to infectious versus inflammatory colitis. Patient reports being diagnosed with ulcerative colitis in [place] "years ago". Continue Cipro and Flagyl to complete 10 day course. Follow up with Dr. Russell in 2 weeks. Plan for colonoscopy in 6-8 weeks as outpatient. - Time Spent With Patient Total time spent is greater than 50% in coordination of care (as documented) at patient's floor/unit and/or counseling patient: GI History of Present Illness - Data of Consult Patient: new to practice Consult date: 04/21/19 Requesting Physician: Car Rojas MD - Consult Narrative Reason for consult: Colitis History of present illness: Mr. Vigil is a 34 year old male who reports history of GERD and ulcerative colitis (dx in [place] "years ago", not on any treatment) who presented to the ED with complaints of abdominal pain. CT A/P showed mild circumferential wall thickening involving portions of the colon which could be related to infectious versus inflammatory colitis. He states this pain started approximately 10 days ago and felt like "acid in my stomach". He reports episodes of nausea and vomiting anytime he tried to eat or drink. He reports having blood in his stool and blood in his vomit several days ago but none since that time. Today his abdominal pain is improved and he denies any vomiting, melena, or hematochezia. Procedures: None NSAIDs: None Anticoagulation: None Past Med Surg Social Fam HX - Past Medical History Medical history: GERD Additional medical history: diverticulitis Psychiatric history: anxiety, bipolar, depression - Past Surgical History Additional surgical history: ELBOW SURG - Social History Smoking Status: Current every day smoker Packs per day: 1 Smokeless Tobacco Status: No Alcohol use: occasionally Drug use: marijuana - Gastrointestinal Gastrointestinal: Present: as per HPI - Constitutional Constitutional: as per HPI - EENT Eyes: as per HPI Ears: Present: as per HPI Nose, mouth and throat: Present: as per HPI - Cardiovascular Cardiovascular ROS: Present: as per HPI - Respiratory Respiratory IM: Present: as per HPI - Genitourinary Genitourinary: Absent: change in color, Urinary frequency - Neurological ROS Neurological GI: Present: as per HPI - Hematologic/Lymphatic Hematologic/Lymphatic pediatric: Present: as per HPI - Musculoskeletal Musculoskeletal ROS GI: Present: as per HPI - Integumentary Integumentary GI: Present: as per HPI - Psychiatric ROS Psychiatric GI: Present: as per HPI - Endocrine Endocrine IM: Present: as per HPI - Constitutional Vitals: Temp Pulse Resp BP Pulse Ox 98.2 F 67 20 102/66 97 04/21/19 15:24 04/21/19 15:24 04/21/19 15:24 04/21/19 15:24 04/21/19 15:24 General appearance: Present: cooperative, A&O X 3, no acute distress, answers questions appropriately - Head Head exam: Present: atraumatic, normocephalic - Eye Eye exam: Present: normal appearance, sclera anicteric - ENT ENT exam: Present: mucous membranes moist - Neck Neck exam general surgery: Present: normal inspection, trachea midline - Respiratory Respiratory exam: Present: CTAB. Absent: rales, rhonchi - Cardiovascular Cardiovascular exam: Present: RRR, +S1, +S2 - GI/Abdominal GI/Abdominal exam: Present: soft, tenderness (mild LLQ tenderness), no peritoneal signs. Absent: distended, firm, guarding - Rectal Rectal exam: Present: deferred - Extremities Exam Extremities exam: Present: warm - Neurological Exam Neurological exam: Present: no focal deficits - Psychiatric Psychiatric exam: Present: normal affect, normal mood - Skin Skin exam: Present: dry, intact, normal color, warm Results - Labs CBC & Chem 7: 04/21/19 02:06 04/21/19 02:06 Consult Discharge Plan - Plan Referrals: NONE,PCP [Primary Care Provider] - <Ghanshyam Antunez - Last Filed: 04/22/19 15:57> Date of Encounter: 04/22/19 Time of Encounter: 16:00 - Time Spent With Patient Total time spent is greater than 50% in coordination of care (as documented) at patient's floor/unit and/or counseling patient: GI History of Present Illness - Data of Consult Requesting Physician: Car Rojas MD - Consult Narrative History of present illness: Mr. Vigil is a 34 year old male - Constitutional Vitals: Temp Pulse Resp BP Pulse Ox 99.0 F 67 15 114/65 98 04/22/19 15:07 04/22/19 15:07 04/22/19 15:07 04/22/19 15:07 04/22/19 15:07 Results - Labs CBC & Chem 7: 04/21/19 02:06 04/21/19 02:06 - Attending Attestation I have personally performed a face to face evaluation on this patient. I have reviewed and agree with the care plan. History and Exam by me shows: Pt seen patient admitted because of her nausea vomiting and abdominal pain. Denies diarrhea examination abdomen is benign. A: Nausea vomiting and CT showing Mild circumferential wall thickening involving portions of the colon which is nonspecific patient do not have any diarrhea. ReC: EGD to rule out upper GI causes for his nausea vomiting if negative then he will be discharged and follow with GI as an outpatient for further workup for his possible IBD history
[2019-04-22] MEDS: *HR* Heparin 5,000 UNIT/ML VIAL SQ SCH ×2 (06:07→16:54)
[2019-04-22] MEDS: MetroNIDAZOLE 500 MG/100 ML 500 MG/100 ML BAG IVPB SCH ×3 (06:09→22:32)
[2019-04-22] MEDS: traMADol 50 MG TABLET PO PRN (07:06)
[2019-04-22] MEDS: Ondansetron 4 MG/2 ML VIAL IVP PRN (08:35)
--- NOTE | 2019-04-22 11:33 | Internal Med Progress Note ---
Hospitalist Progress Note - Encounter Date of Encounter: 04/22/19 Time of Encounter: 11:22 - Subjective Interval History: Mr. Vigil is a 34 year old male with PMHx of anxiety, depression, ?? Ulcerative colitis ( Pt stated he was dx with UC few years ago at [facility] , unable to recall the hospital ), now he presented to ER with two-week history of intractable nausea, vomiting and lower abdominal pain. In the ER his CT scan showed Mild circumferential wall thickening involving portions of the colon which may again relate to infectious or inflammatory colitis. He was admitted in the hospital and started him on IV hydration and empirical antibiotic Cipro and Flagyl. Patient was seen by Jacob who recommended colonoscopy as outpatient in 2 weeks. However patient is still complaining about severe intractable nausea and vomiting with epigastric abdominal pain today. Patient stated he was not able to hold anything down, every time when try to eat his pain is getting aggravated. - Exam Vitals: Temp Pulse Resp BP Pulse Ox 98.5 F 59 15 106/60 98 04/22/19 06:35 04/22/19 06:35 04/22/19 06:35 04/22/19 06:35 04/22/19 06:35 Exam: Gen: Alert, awake, Oriented to time,place and person Chest: Diminished breath sounds B/L, No wheezing, No crackles, No rales Heart: S1S2+ RRR No murmurs Abd: Soft, mild discomfort lower abdomen region, BS +, No organomegaly Ext: No edema, pulses are palpable, No calf tenderness Neuro : No acute focal neuro deficits noticed Skin: No rash. - Assessment and Plan (1) Colitis Current Visit: Yes Status: Acute Assessment and Plan: Inf vs inflammatory Pt stated he was diagnosed with Ulceratgive colitis in the past 3-4 yrs ago in [place] unable to provide [facility] information where he had colonoscopy done cont empirical antibiotic IV Cipro on Flagyl continue symptomatic and supportive care Terence Pelaez consulted - Recommend out pt colonoscopy in 2 weeks. Will start him on IV steroids too since his symptoms improved with above care (2) Intractable abdominal pain Current Visit: Yes Status: Acute Assessment and Plan: as above (3) Intractable nausea and vomiting Current Visit: Yes Status: Acute Assessment and Plan: Still has severe nausea / vomiting on NPO Started him on IV hydration Talked to GI scheduled for EGD today Started him on PPI IV BID continue symptomatic and supportive care (4) Substance abuse Current Visit: Yes Status: Acute Assessment and Plan: UDS positive for opioids and [facility] counseled to quit doing drugs - Time Spent with Patient Total time spent is greater than 50% in coordination of care (as documented) at patient's floor/unit and/or counseling patient: Internal Medicine: Result - Labs CBC & Chem 7: 04/21/19 02:06 04/21/19 02:06 Consult Discharge Plan - Plan Referrals: NONE,PCP [Primary Care Provider] - (3) Intractable nausea and vomiting Qualifiers: Vomiting type: unspecified Qualified Code(s): R11.2 - Nausea with vomiting, unspecified
[2019-04-22] MEDS: Pantoprazole 40 MG VIAL IVP SCH ×2 (11:51→16:47)
[2019-04-22] MEDS: D5% in 0.9% NACL 1,000 ML IVC SCH (11:54)
[2019-04-22] MEDS ORDERED: *HR* FentaNYL (PF) 100 MCG/2 ML VIAL IVP ONE ×2 (14:17→17:47)
[2019-04-22] MEDS ORDERED: *HR* FentaNYL (PF) 100 MCG/2 ML VIAL ONE (17:47)
[2019-04-22] MEDS ORDERED: Simethicone 40 MG/0.6 ML MLS IR ONE (17:47)
[2019-04-22] MEDS ORDERED: *HR* Midazolam HCl 5 MG/5 ML VIAL IVP ONE ×2 (17:47)
[2019-04-22] MEDS ORDERED: Tetracaine/Benzocaine/Butamben 1 SPRAY AEROSOL MM ONE (17:47)
--- NOTE | 2019-04-22 17:48 | Pre-Sedation Evaluation ---
Pre-sedation evaluation - Pre-sedation checklist Date of procedure: 04/22/19 Recent Vitals: Last Vital Signs Temp 99.0 F 04/22/19 15:07 Pulse 67 04/22/19 15:07 Resp 15 04/22/19 15:07 BP 114/65 04/22/19 15:07 Pulse Ox 98 04/22/19 15:07 ASA Classification *see protocol: CLASS II-Mild systemic disease
[2019-04-22] MEDS: *HR* FentaNYL (PF) 100 MCG/2 ML VIAL IVP SCH (21:25)
[2019-04-23] MEDS: *HR* FentaNYL (PF) 100 MCG/2 ML VIAL IVP SCH ×6 (01:54→19:45)
[2019-04-23] MEDS: D5% in 0.9% NACL 1,000 ML IVC SCH ×3 (04:17→14:59)
[2019-04-23] MEDS: MetroNIDAZOLE 500 MG/100 ML 500 MG/100 ML BAG IVPB SCH ×2 (06:23→13:29)
[2019-04-23] MEDS: *HR* Heparin 5,000 UNIT/ML VIAL SQ SCH ×2 (06:38→17:11)
[2019-04-23] MEDS: Pantoprazole 40 MG VIAL IVP SCH ×2 (06:38→17:45)
[2019-04-23 13:53] LABS: Basophils % 0.5 %; Eosinophils # 0.1 K/mcL (0.0-0.6); Eosinophils % 0.8 %; Hematocrit 38.7 % (37.5-50.1); Immature Granulocytes % 0.2 % (0-4); Lymphocytes % 31.5 %; Mean Corpuscular HGB Conc 33.1 g/dL (31.6-35.5); Mean Corpuscular Hemoglobin 31.3 pg (28.0-33.3); Mean Corpuscular Volume 94.6 fL (83.0-100.0); Mean Platelet Volume 11.2 fL (9.4-12.4); Monocytes # 0.5 K/mcL (0.0-1.3); Monocytes % 7.1 %; Neutrophils # 3.9 K/mcL (1.6-8.9); Platelet Count 189 K/mcL (140-400); Red Blood Count 4.09 M/mcL (4.19-5.50); Red Cell Distribution Width 12.4 % (11.5-14.5); Segmented Neutrophils % 59.9 %; White Blood Count 6.5 K/mcL (4.3-11.1)
[2019-04-23 13:54] LABS: Hemoglobin 12.8 g/dL (12.9-16.9)
[2019-04-23 14:13] LABS: Alanine Aminotransferase 11 Units/L (7-52); Albumin 4.1 g/dL (3.5-5.7); Albumin/Globulin Ratio 1.6 (1.1-2.2); Alkaline Phosphatase 59 Units/L (34-104); Aspartate Amino Transferase 12 Units/L (13-39); BUN/Creatinine Ratio 19 (6-26); Bilirubin,Direct 0.1 mg/dL (0.0-0.2); Bilirubin,Indirect 0.3 mg/dL (0.0-1.2); Bilirubin,Total 0.4 mg/dL (0.3-1.0); Blood Urea Nitrogen 13 mg/dL (6-20); Calcium 8.9 mg/dL (8.6-10.3); Carbon Dioxide 26 mEq/L (23-29); Chloride 110 mEq/L (98-107); Globulin 2.5 g/dL (2.4-3.5); Glucose 140 mg/dL (70-105); Osmolality,Calculated 296 (280-300); Sodium 142 mEq/L (136-145); Total Protein 6.6 g/dL (6.4-8.9); eGFR For African Americans > 60 (> 60); eGFR For Non-African Americans > 60 (> 60)
[2019-04-23] MEDS ORDERED: Potassium Chloride 40 MEQ, Lidocaine 1% 2 ML in D5% in Water 500 ML IVPB ONE (15:09)
--- NOTE | 2019-04-23 16:59 | Internal Med Progress Note ---
Hospitalist Progress Note - Encounter Date of Encounter: 04/23/19 Time of Encounter: 11:00 - Subjective Interval History: Patient has been seen and examined at bedside-discussed ultrasound results- patient states that he has been feeling somewhat better we will attempt to feed the patient today if he will keep down food we can discharge. Discussed this w ith the patient however became concerned. He states that he usually gets sick at night after he eats advised patient that we will monitor overnight if he is tolerating orals he can go home in the morning - Exam Vitals: Temp Pulse Resp BP Pulse Ox 98.6 F 66 15 123/66 100 04/23/19 14:46 04/23/19 14:46 04/23/19 14:46 04/23/19 14:46 04/23/19 14:46 Exam: Gen: Alert, awake, Oriented to time,place and person Chest: Diminished breath sounds B/L, No wheezing, No crackles, No rales Heart: S1S2+ RRR No murmurs Abd: Soft, mild discomfort lower abdomen region, BS +, No organomegaly Ext: No edema, pulses are palpable, No calf tenderness Neuro : No acute focal neuro deficits noticed Skin: No rash. - Assessment and Plan (1) Colitis Current Visit: Yes Status: Acute Assessment and Plan: Inf vs inflammatory Pt stated he was diagnosed with Ulceratgive colitis in the past 3-4 yrs ago in [place] unable to provide [facility] information where he had colonoscopy done cont empirical antibiotic IV Cipro on Flagyl continue symptomatic and supportive care G. I consulted - Recommend out pt colonoscopy in 2 weeks. (2) Intractable nausea and vomiting Current Visit: Yes Status: Acute Assessment and Plan: Nausea and vomiting are improving we will attempt to start patient on clear liquids and advance as tolerated Started him on IV hydration EGD completed which was normal Started him on PPI IV BID continue symptomatic and supportive care Gallbladder ultrasound was unremarkable (3) Intractable abdominal pain Current Visit: Yes Status: Acute Assessment and Plan: as above (4) Substance abuse Current Visit: Yes Status: Acute Assessment and Plan: UDS positive for opioids and [facility] counseled to quit doing drugs (5) Hypokalemia Current Visit: Yes Status: Acute Assessment and Plan: Potassium was 3 today most likely secondary to fluid loss from vomiting we will replace and monitor Continue with anti-emetics - Time Spent with Patient Total time spent is greater than 50% in coordination of care (as documented) at patient's floor/unit and/or counseling patient: Internal Medicine: Result - Labs CBC & Chem 7: 04/23/19 13:20 04/23/19 13:20 Labs: Short CBC 04/23/19 Range/Units 13:20 WBC 6.5 (4.3-11.1) K/mcL Hgb 12.8 L D (12.9-16.9) g/dL Hct 38.7 (37.5-50.1) % Plt Count 189 (140-400) K/mcL Neutrophils # 3.9 (1.6-8.9) K/mcL BMP 04/23/19 13:20 Sodium 142 Potassium 3.0 L Chloride 110 H Carbon Dioxide 26 BUN 13 Creatinine 0.70 Glucose 140 H Calcium 8.9 Liver Function 04/23/19 Range/Units 13:20 Total Bilirubin 0.4 (0.3-1.0) mg/dL Direct Bilirubin 0.1 (0.0-0.2) mg/dL AST 12 L (13-39) Units/L ALT 11 (7-52) Units/L Alkaline Phosphatase 59 (34-104) Units/L Albumin 4.1 (3.5-5.7) g/dL - Impressions Impressions Gallbladder Ultrasound 04/22/19 18:45 IMPRESSION: Unremarkable right upper quadrant ultrasound. D/ / Lane Hassan MD / Lane Hassan MD Interpreting Provider: Lane Hassan MD Consult Discharge Plan - Plan Referrals: NONE,PCP [Primary Care Provider] - (2) Intractable nausea and vomiting Qualifiers: Vomiting type: unspecified Qualified Code(s): R11.2 - Nausea with vomiting, unspecified
[2019-04-24] MEDS: MetroNIDAZOLE 500 MG/100 ML 500 MG/100 ML BAG IVPB SCH ×2 (00:24→07:53)
[2019-04-24] MEDS: *HR* FentaNYL (PF) 100 MCG/2 ML VIAL IVP SCH ×4 (02:20→11:55)
[2019-04-24] MEDS: traMADol 50 MG TABLET PO PRN (06:16)
[2019-04-24] MEDS: Pantoprazole 40 MG VIAL IVP SCH (06:19)
[2019-04-24] MEDS: *HR* Heparin 5,000 UNIT/ML VIAL SQ SCH (06:51)
[2019-04-24 11:23] VITALS: BP 137/77
[2019-04-24 11:35] LABS: BUN/Creatinine Ratio 9 (6-26); Blood Urea Nitrogen 6 mg/dL (6-20); Calcium 9.3 mg/dL (8.6-10.3); Carbon Dioxide 28 mEq/L (23-29); Chloride 106 mEq/L (98-107); Glucose 81 mg/dL (70-105); Osmolality,Calculated 291 (280-300); Potassium 3.2 mEq/L (3.5-5.1); Sodium 142 mEq/L (136-145); eGFR For African Americans > 60 (> 60); eGFR For Non-African Americans > 60 (> 60)
--- NOTE | 2019-04-24 11:53 | Discharge Summary ---
- NOTES TO OUTPATIENT PROVIDER Notes to Outpatient Provider: And Cipro Flagyl to complete 10 day course follow- up with in 2 weeks plan for colonoscopy in 6-8 weeks as outpatient. Monitor chemistry-had hypokalemia secondary to nausea and vomiting Date of Encounter: 04/24/19 Time of Encounter: 11:51 - Discharge Diagnosis (1) Colitis Priority: Primary Status: Acute (2) Intractable nausea and vomiting Priority: Secondary Status: Acute Qualifiers: Vomiting type: unspecified Qualified Code(s): R11.2 - Nausea with vomiting, unspecified (3) Intractable abdominal pain Priority: Secondary Status: Acute (4) Substance abuse Priority: Secondary Status: Acute (5) Hypokalemia Priority: Secondary Status: Acute Hospital course: Mr. Vigil is a 34 year old male past medical history of GERD and ulcerative colitis who presented to [facility] ED with complaints of abdominal pain CTA/PE showed mild circumferential wall thickening involving portions of the colon which could be related to infectious versus inflammatory colitis. He has been experiencing episodes of nausea and vomiting anytime he would try to eat or drink. He did have some blood in his stools and an episode of blood in his vomit but none since this admission. GI was consulted and patient did undergo EGD which was within normal limits GI recommending continuation of Cipro and Flagyl for duration of 10 days and to follow-up in 2 weeks and a planned colonoscopy in 6-8 weeks as outpatient patient received IV Cipro and Flagyl during this admission and his symptoms have improved. He has been having bowel movements without any blood abdominal pain has improved and he has been tolerating solid foods. No white count or fever. He did have some hypokalemia secondary to vomiting which was replaced. Patient will be discharged home with a prescription of Cipro and Flagyl to complete a 10 day course also he will be given 2 days of oral potassium and Zofran for nausea. He will follow-up with his primary care provider and will have chemistry checked next week. Patient verbalized understanding and he is ready for discharge. - Time Spent with Patient Total time spent providing and/or coordinating discharge services: - Discharge Medications Prescriptions: New Ciprofloxacin [Cipro] 500 mg PO BID #13 tablet metroNIDAZOLE [Flagyl] 500 mg PO TID #20 tablet Potassium Chloride 20 meq PO DAILY 2 Days #2 tab.er.prt Ondansetron ODT [Zofran ODT] 4 mg SL Q6HR PRN #20 tab.rapdis PRN Reason: Nausea And Vomiting Home Medications: Ciprofloxacin [Cipro] 500 mg PO BID #13 tablet 04/24/19 [Rx] Ondansetron ODT [Zofran ODT] 4 mg SL Q6HR PRN #20 tab.rapdis 04/24/19 [Rx] Potassium Chloride 20 meq PO DAILY 2 Days #2 tab.er.prt 04/24/19 [Rx] metroNIDAZOLE [Flagyl] 500 mg PO TID #20 tablet 04/24/19 [Rx] Allergies/Adverse Reactions: Allergy/AdvReac Type Severity Reaction Status Date / Time No Known Allergies Allergy Verified 04/20/19 21:14 Date of admission: 04/20/19 13:52 Primary care physician: PCP NONE Consults: 04/20/19 11:24 Consult to Gastroenterology [CONS] Stat Consulting Provider: [facility] [place] Reason for Consult: colitis, reports blood in vomit and blood in stool Time Notified: 11:24 Call Completed: Yes Discharging clinician: Whitney Yost Anticipated date of discharge: 04/24/19 - Constitutional Vitals: Temp Pulse Resp BP Pulse Ox 98.7 F 74 16 137/77 100 04/24/19 11:19 04/24/19 11:19 04/24/19 11:19 04/24/19 11:19 04/24/19 11:19 General appearance: Present: A&O X 3, pleasant, no acute distress, answers questions appropriately Exam: Gen: Alert, awake, Oriented to time,place and person Chest: Diminished breath sounds B/L, No wheezing, No crackles, No rales Heart: S1S2+ RRR No murmurs Abd: Soft, mild discomfort lower abdomen region, BS +, No organomegaly Ext: No edema, pulses are palpable, No calf tenderness Neuro : No acute focal neuro deficits noticed Skin: No rash. - Patient Status Disposition: Home, Self-Care Condition: Good Functional capacity at discharge: independent ambulation Overall status at discharge: patient is back to baseline - Ambulatory Orders Ambulatory Orders: Basic Metabolic Panel [CHEM] Time Frame: 04/27/19, Facility: [facility], Location: Lab - Discharge Instructions Follow Up With: NONE,PCP [Primary Care Provider] - Additional Instructions: Please contact your primary provider and schedule an appointment within 7-10 days. If you want an [facility] provider, please call [phone] to establish a primary care provider. - Diet and Activity Activity: increase activity as tolerated Diet: advance to your usual diet
== END 2019-04-24 12:58 | disposition home or self-care (01) ==
LOC: 3BNU 08:37 → EMEROOARM 08:37 → SUATTDRO 13:52 → 3BNU 15:00
PROVIDERS: ADMIT Internal Medicine Nephrology; ATTEND Family Medicine

== ENCOUNTER 2020-06-04 22:11 | Inpatient (IN) ==
[2020-06-04 23:11] LABS: Bilirubin,Urine Negative (Negative); Blood,Urine Negative (Negative); Clarity,Urine Clear (Clear); Color,Urine Yellow (Yellow); Glucose,Urine (UA) Normal (Normal); Ketones,Urine Negative (Negative); Leukocyte Esterase,Urine Negative (Negative); Nitrite,Urine Negative (Negative); Protein,Urine Trace mg/dL (Neg-Trace); Specific Gravity,Urine 1.021 (1.010-1.025)
[2020-06-04 23:13] LABS: Basophils # 0.1 K/mcL (0.0-0.2); Basophils % 0.7 %; Eosinophils # 0.1 K/mcL (0.0-0.6); Eosinophils % 1.5 %; Hematocrit 39.8 % (37.5-50.1); Hemoglobin 13.7 g/dL (12.9-16.9); Immature Granulocytes % 0.2 % (0-4); Lymphocytes # 3.5 K/mcL (0.6-4.6); Lymphocytes % 39.1 %; Mean Corpuscular HGB Conc 34.4 g/dL (31.6-35.5); Mean Corpuscular Hemoglobin 32.6 pg (28.0-33.3); Mean Corpuscular Volume 94.8 fL (83.0-100.0); Mean Platelet Volume 10.4 fL (9.4-12.4); Monocytes # 0.8 K/mcL (0.0-1.3); Monocytes % 9.3 %; Neutrophils # 4.4 K/mcL (1.6-8.9); Platelet Count 239 K/mcL (140-400); Segmented Neutrophils % 49.2 %; White Blood Count 8.9 K/mcL (4.3-11.1)
[2020-06-04 23:22] LABS: Acetaminophen < 10 mcg/mL (10-20); BUN/Creatinine Ratio 13 (6-26); Blood Urea Nitrogen 11 mg/dL (6-20); Calcium 9.1 mg/dL (8.6-10.3); Carbon Dioxide 26 mEq/L (23-29); Chloride 105 mEq/L (98-107); Ethanol 84 mg/dL (Less than 10); Glucose 100 mg/dL (70-105); Osmolality,Calculated 291 (280-300); Potassium 3.4 mEq/L (3.5-5.1); Salicylate < 2.5 mg/dL (15.0-30.0); Sodium 141 mEq/L (136-145); eGFR For African Americans > 60 (> 60); eGFR For Non-African Americans > 60 (> 60)
[2020-06-04 23:44] LABS: Amphetamine Screen,Urine Negative ng/mL (Cutoff=1000); Barbiturate Screen,Urine Negative ng/mL (Cutoff=200); Benzodiazepines Screen,Urine Negative ng/mL (Cutoff=200); Cannabinoid Screen,Urine Positive ng/mL (Cutoff = 50); Cocaine Screen,Urine Negative ng/mL (Cutoff= 300); Opiate Screen,Urine Negative ng/mL (Cutoff=300); Phencyclidine Screen,Urine Negative ng/mL (Cutoff=25)
[2020-06-05] MEDS ORDERED: QUEtiapine Fumarate 25 MG TABLET PO PRN (02:15)
[2020-06-05] MEDS ORDERED: Haloperidol Lactate 5 MG/ML VIAL IM PRN (02:15)
[2020-06-05] MEDS ORDERED: hydrOXYzine pamoate 25 MG CAPSULE PO PRN (02:15)
[2020-06-05] MEDS ORDERED: haloperidoL 5 MG TABLET PO PRN (02:15)
[2020-06-05] MEDS ORDERED: MOM Conc 10 ML UD.LIQ PO PRN (02:15)
[2020-06-05] MEDS ORDERED: *HR* LORazepam 2 MG/ML VIAL IM PRN (02:15)
[2020-06-05] MEDS ORDERED: *HR* LORazepam 1 MG TABLET PO PRN (02:15)
[2020-06-05] MEDS ORDERED: Mag Hydrox/Al Hydrox/Simeth 30 ML UDC PO PRN (02:15)
[2020-06-05] MEDS ORDERED: Acetaminophen 325 MG TABLET PO PRN (02:15)
[2020-06-05 03:37] LABS: Thyroid Stimulating Hormone 1.779 mcIU/mL (0.340-5.600)
[2020-06-05 07:32] LABS: Estimated Average Glucose 105 mg/dl; Hemoglobin A1C 5.3 %
[2020-06-05] MEDS: Nicotine 21 MG PATCH.TD24 TD SCH (09:24)
[2020-06-05] MEDS: diazePAM 5 MG TABLET PO SCH ×2 (13:47→20:25)
[2020-06-05] MEDS ORDERED: Mirtazapine 15 MG TABLET PO SCH (21:00)
[2020-06-06] MEDS: diazePAM 5 MG TABLET PO SCH (08:35)
[2020-06-06] MEDS: Nicotine 21 MG PATCH.TD24 TD SCH (08:36)
[2020-06-06 09:57] VITALS: BP 137/89
== END 2020-06-06 16:00 | disposition home or self-care (01) | DRG 753 ==
LOC: EMEROOARM 22:11 → 1ANU 06-05 02:10
PROVIDERS: ADMIT Psychiatry & Neurology Psychiatry; ATTEND Psychiatry & Neurology Psychiatry